=== PATIENT | female | born 1960 | race Caucasian/White ===

== ENCOUNTER → 2021-07-02 11:22 | Outpatient (CLI) | payer OTHER, SELFPAY ==
--- NOTE | 2021-07-02 | DI.RAD_ITS ---
Exam(s) XR HUMERUS RT XR SHOULDER RT COMPLETE 2+V EXAM: XR HUMERUS RT and XR shoulder RT complete 2+ view CLINICAL HISTORY: RT SHOULDER PAIN, M25.511. TECHNIQUE: 2D digital imaging was performed of the right humerus. Nine images were obtained. COMPARISON: No previous for comparison. FINDINGS: BONES: There is an acute comminuted fracture of the proximal right humerus. There is a transverse co mponent of the fracture which goes through the surgical neck. Longitudinal components go through the greater tuberosity. There is mild impaction of the surgical neck component of the fracture. No bon y destructive lesion is seen. Visualized portion of the elbow is unremarkable. SOFT TISSUE: Normal. IMPRESSION: 1. Acute comminuted mildly impacted fracture of the proximal right humerus. 2. The glenohumeral and acromioclavicular joints are well maintained. DATA REPOSITORY: RADIATION DOSE DELIVERED:
== END ==
PROVIDERS: Visit Provider Nurse Practitioner Family
DX: M25.511 Pain in right shoulder (principal); S42.201A Unspecified fracture of upper end of right humerus, initial encounter for closed fracture; X58.XXXA Exposure to other specified factors, initial encounter
CPT/HCPCS: 73030; 73060

== ENCOUNTER 2021-07-09 09:08 | Outpatient (CLI) | payer OTHER, SELFPAY ==
--- NOTE | 2021-07-09 08:50 | DI.RAD_ITS ---
Exam(s) XR SHOULDER RT COMPLETE 2+V EXAM: XR SHOULDER RT COMPLETE 2+V CLINICAL HISTORY: right shoulder pain. TECHNIQUE: 2D digital imaging was performed of the right shoulder. Three images were obtained. AP and Y-view views were obtained. COMPARISON: CR XR SHOULDER RT COMPLETE 2+V from 07/02/2021 FINDINGS: BONES: There has been no change in alignment of the comminuted proximal right humeral fracture since 07/02/2021. No bony destructive lesion is seen. JOINTS: No dislocation present. SOFT TISSUE: Normal. IMPRESSION: Stable proximal right humeral fracture. DATA REPOSITORY: RADIATION DOSE DELIVERED:
== END 2021-07-09 09:09 | disposition home or self-care (01) ==
LOC: DIORS 09:08
PROVIDERS: Visit Provider Student in an Organized Health Care Education/Training Program
DX: M25.511 Pain in right shoulder (principal); S42.241D 4-part fracture of surgical neck of right humerus, subsequent encounter for fracture with routine healing; X58.XXXD Exposure to other specified factors, subsequent encounter
CPT/HCPCS: 73030

== ENCOUNTER 2021-07-24 09:55 | Outpatient (CLI) | payer OTHER, SELFPAY ==
--- NOTE | 2021-07-24 09:30 | DI.RAD_ITS ---
Exam(s) XR SHOULDER RT COMPLETE 2+V EXAM: XR SHOULDER RT COMPLETE 2+V CLINICAL HISTORY: RIGHT HUMERUS FX F/U. TECHNIQUE: 2D digital imaging was performed of the right shoulder. Two images were obtained. AP an d Y-view views were obtained. COMPARISON: CR XR SHOULDER RT COMPLETE 2+V from 07/09/2021 FINDINGS: BONES: There has been no change in alignment of the comminuted fracture involving the proximal right humerus. The fracture lines are still well visualized. No new fracture or dislocation is present. No bony destructive lesion is seen. JOINTS: No dislocation present. SOFT TISSUE: Normal. IMPRESSION: Stable proximal right humeral fracture. DATA REPOSITORY: RADIATION DOSE DELIVERED:
== END 2021-07-24 09:56 | disposition home or self-care (01) ==
LOC: DIORS 09:55
PROVIDERS: Visit Provider Physician Assistant
DX: S42.291D Other displaced fracture of upper end of right humerus, subsequent encounter for fracture with routine healing (principal)
CPT/HCPCS: 73030